=== PATIENT | female | born 1965 | race African-American/Black ===

== ENCOUNTER 2017-06-22 19:00 | Inpatient (IN) | payer MEDICAID, OTHER ==
[~2017-06-22] VITALS: Ht 177.8 cm; Wt 120.2 kg
[2017-06-22] MEDS ORDERED: KETOROLAC 60MG/2ML VIAL IM ONE (20:45)
[2017-06-22] MEDS ORDERED: MORPHINE SULFATE 4 MG/ML CPJ (NOT FOR IM USE) IV ONE (21:00)
[2017-06-22 21:10] LABS: BASOPHILS % 0.6 % (0.0-2.0); EOSINOPHILS % 2.6 % (0.0-5.0); HEMATOCRIT. 30.7 % (36.0-48.0); HEMOGLOBIN. 9.8 g/dL (12.0-16.0); LYMPHOCYTES % 17.4 % (20.0-50.0); MEAN CORPUSCULAR HEMOGLOBIN 25.4 pg (28.0-32.0); MEAN CORPUSCULAR VOLUME 79.5 fL (81.0-99.0); MEAN PLATELET VOLUME 7.9 fl (7.4-10.4); MONOCYTES % 10.5 % (2.0-8.0); NEUTROPHILS % 68.9 % (40.0-76.0); PLATELET 306 x1000/uL (130-400); RED BLOOD CELL COUNT 3.87 mill/uL (4.2-5.4); RED CELL DISTRIBUTION WIDTH 14.5 % (11.6-14.6)
[2017-06-22] MEDS ORDERED: SODIUM CHLORIDE 0.9% 500 ML IV ONE (22:00)
[2017-06-23] MEDS ORDERED: MORPHINE SULFATE 4 MG/ML CPJ (NOT FOR IM USE) IV ONE (01:00)
[2017-06-23] MEDS ORDERED: MORPHINE SULFATE 4 MG/ML CPJ (NOT FOR IM USE) IV PRN (05:45)
[2017-06-23 08:30] VITALS: BP 138/80
[2017-06-23] MEDS ORDERED: TRAMADOL 50MG TABLET PO PRN (10:00)
[2017-06-23] MEDS: SODIUM CHLORIDE 0.9% 1,000 ML IV SCH ×2 (10:47→22:57)
[2017-06-23 12:00] VITALS: BP 129/75
[2017-06-23] MEDS ORDERED: VANCOMYCIN 2,000 MG in DEXT 5% WATER 500 ML IV NR (12:00)
[2017-06-23 16:00] VITALS: BP 120/61
[2017-06-23] MEDS: TRAMADOL 50MG TABLET PO PRN (18:47)
[2017-06-23 20:00] VITALS: BP 126/72
[2017-06-24] VITALS: BP 126/69
[2017-06-24] MEDS: TRAMADOL 50MG TABLET PO PRN ×2 (02:57→12:02)
[2017-06-24 04:00] VITALS: BP 122/75
[2017-06-24] MEDS: SODIUM CHLORIDE 0.9% 1,000 ML IV SCH (06:12)
[2017-06-24 08:00] VITALS: BP 124/77
[2017-06-24] MEDS: VANCOMYCIN 1,750 MG in DEXT 5% WATER 250 ML IV SCH (11:59)
[2017-06-24 12:00] VITALS: BP 124/85
[2017-06-24 16:00] VITALS: BP 125/80
[2017-06-24 20:00] VITALS: BP 114/77
[2017-06-25] VITALS: BP 110/71
[2017-06-25] MEDS: TRAMADOL 50MG TABLET PO PRN ×3 (00:01→18:40)
[2017-06-25 04:00] VITALS: BP 108/58
[2017-06-25 06:13] LABS: HEMATOCRIT. 27.9 % (36.0-48.0); HEMOGLOBIN. 9.2 g/dL (12.0-16.0); MEAN CORPUSCULAR HEMOGLOBIN 25.3 pg (28.0-32.0); MEAN CORPUSCULAR VOLUME 76.8 fL (81.0-99.0); MEAN PLATELET VOLUME 7.6 fl (7.4-10.4); PLATELET 278 x1000/uL (130-400); RED BLOOD CELL COUNT 3.63 mill/uL (4.2-5.4); RED CELL DISTRIBUTION WIDTH 14.2 % (11.6-14.6)
[2017-06-25 06:58] LABS: CARBON DIOXIDE 28 mEq/L (21-32); CHLORIDE 101 mEq/L (98-107)
[2017-06-25 08:00] VITALS: BP 128/76
[2017-06-25] MEDS: ENOXAPARIN 30MG/0.3ML SYR SUBCUT SCH ×2 (11:10→22:42)
[2017-06-25] MEDS: MAGNESIUM/ALUMINUM HYDROXIDE/SIMETHICONE 30ML UDC PO PRN (11:10)
[2017-06-25 12:00] VITALS: BP 125/72
[2017-06-25] MEDS: SODIUM CHLORIDE 0.9% 1,000 ML IV SCH (13:04)
[2017-06-25] MEDS: VANCOMYCIN 1,750 MG in DEXT 5% WATER 250 ML IV SCH (13:04)
[2017-06-25 13:23] LABS: PLATELET ESTIMATE NORMAL
[2017-06-25 16:00] VITALS: BP 134/76
[2017-06-25 20:00] VITALS: BP 103/61
[2017-06-25] MEDS: ONDANSETRON HCL 4MG/2ML VIAL IV PRN (20:21)
[2017-06-26] VITALS: BP 139/86
[2017-06-26 04:00] VITALS: BP 145/74
[2017-06-26] MEDS: TRAMADOL 50MG TABLET PO PRN ×3 (05:57→22:31)
[2017-06-26] MEDS: SODIUM CHLORIDE 0.9% 1,000 ML IV SCH ×3 (05:59→22:32)
[2017-06-26 06:48] LABS: BASOPHILS % 0.8 % (0.0-2.0); EOSINOPHILS % 3.4 % (0.0-5.0); HEMOGLOBIN. 9.3 g/dL (12.0-16.0); LYMPHOCYTES % 27.7 % (20.0-50.0); MEAN CORPUSCULAR HEMOGLOBIN 25.4 pg (28.0-32.0); MEAN CORPUSCULAR VOLUME 76.4 fL (81.0-99.0); MEAN PLATELET VOLUME 7.3 fl (7.4-10.4); MONOCYTES % 14.9 % (2.0-8.0); NEUTROPHILS % 53.2 % (40.0-76.0); PLATELET 285 x1000/uL (130-400); RED BLOOD CELL COUNT 3.66 mill/uL (4.2-5.4); RED CELL DISTRIBUTION WIDTH 14.1 % (11.6-14.6)
[2017-06-26 07:10] LABS: CARBON DIOXIDE 25 mEq/L (21-32); CHLORIDE 100 mEq/L (98-107)
[2017-06-26 08:00] VITALS: BP 127/71
[2017-06-26] MEDS: MULTIVITAMINS,THER W-MINERALS TABLET PO SCH (09:09)
[2017-06-26] MEDS: ENOXAPARIN 30MG/0.3ML SYR SUBCUT SCH ×2 (09:10→21:01)
[2017-06-26] MEDS: ZINC SULFATE 220 MG ( 50 ) CAPSULE PO SCH (09:10)
[2017-06-26] MEDS: ASCORBIC ACID 250 MG TABLET PO SCH ×2 (09:10→21:01)
[2017-06-26 12:00] VITALS: BP 125/71
[2017-06-26] MEDS: VANCOMYCIN 1,750 MG in DEXT 5% WATER 250 ML IV SCH (12:41)
[2017-06-26 16:00] VITALS: BP 120/74
[2017-06-26 20:00] VITALS: BP 129/73
[2017-06-26] MEDS: MAGNESIUM/ALUMINUM HYDROXIDE/SIMETHICONE 30ML UDC PO PRN (21:19)
[2017-06-27] VITALS: BP 128/71
[2017-06-27 04:00] VITALS: BP 129/73
[2017-06-27] MEDS: SODIUM CHLORIDE 0.9% 1,000 ML IV SCH ×2 (06:54→22:23)
[2017-06-27] MEDS: TRAMADOL 50MG TABLET PO PRN ×2 (06:54→14:56)
[2017-06-27 08:00] VITALS: BP 117/79
[2017-06-27] MEDS: MULTIVITAMINS,THER W-MINERALS TABLET PO SCH (08:46)
[2017-06-27] MEDS: ZINC SULFATE 220 MG ( 50 ) CAPSULE PO SCH (08:46)
[2017-06-27] MEDS: ASCORBIC ACID 250 MG TABLET PO SCH ×2 (08:46→22:22)
[2017-06-27] MEDS: ENOXAPARIN 30MG/0.3ML SYR SUBCUT SCH ×2 (08:47→22:22)
[2017-06-27 12:00] VITALS: BP 130/60
[2017-06-27] MEDS: VANCOMYCIN 1,750 MG in DEXT 5% WATER 250 ML IV SCH (12:41)
[2017-06-27 16:00] VITALS: BP 123/73
[2017-06-27 20:00] VITALS: BP 126/69
[2017-06-28] VITALS: BP_SYST 113; BP_SYST 139; BP_DIAS 58; BP_DIAS 76
[2017-06-28] MEDS: TRAMADOL 50MG TABLET PO PRN ×2 (03:03→12:10)
[2017-06-28 04:00] VITALS: BP 111/58
[2017-06-28 08:00] VITALS: BP 109/71
[2017-06-28] MEDS: MULTIVITAMINS,THER W-MINERALS TABLET PO SCH (09:16)
[2017-06-28] MEDS: ZINC SULFATE 220 MG ( 50 ) CAPSULE PO SCH (09:16)
[2017-06-28] MEDS: ASCORBIC ACID 250 MG TABLET PO SCH (09:16)
[2017-06-28] MEDS: SODIUM CHLORIDE 0.9% 1,000 ML IV SCH (09:16)
[2017-06-28] MEDS: ENOXAPARIN 30MG/0.3ML SYR SUBCUT SCH (09:17)
[2017-06-28 12:00] VITALS: BP 113/67
[2017-06-28] MEDS: VANCOMYCIN 1,750 MG in DEXT 5% WATER 250 ML IV SCH (12:11)
[2017-06-28 16:00] VITALS: BP 114/67
[2017-06-28 20:00] VITALS: BP 122/68
[2017-06-29] VITALS: BP 114/76
[2017-06-29] MEDS: ASCORBIC ACID 250 MG TABLET PO SCH ×3 (00:03→20:50)
[2017-06-29] MEDS: ENOXAPARIN 30MG/0.3ML SYR SUBCUT SCH ×3 (00:04→20:50)
[2017-06-29] MEDS: TRAMADOL 50MG TABLET PO PRN ×3 (00:04→20:51)
[2017-06-29] MEDS: SODIUM CHLORIDE 0.9% 1,000 ML IV SCH ×2 (03:58→16:36)
[2017-06-29 04:00] VITALS: BP 111/56
[2017-06-29 08:00] VITALS: BP 112/67
[2017-06-29] MEDS: MULTIVITAMINS,THER W-MINERALS TABLET PO SCH (09:05)
[2017-06-29] MEDS: ZINC SULFATE 220 MG ( 50 ) CAPSULE PO SCH (09:05)
[2017-06-29 12:00] VITALS: BP 112/62
[2017-06-29] MEDS: VANCOMYCIN 1,750 MG in DEXT 5% WATER 250 ML IV SCH (13:38)
[2017-06-29 16:00] VITALS: BP 107/69
[2017-06-29] MEDS ORDERED: METHYL SALICYLATE/MENTHOL CREAM 85GM TOP PRN (16:00)
[2017-06-29 20:00] VITALS: BP 127/64
[2017-06-29] MEDS: ACETAMINOPHEN 325MG TABLET PO PRN (22:23)
[2017-06-30] VITALS: BP 104/53
[2017-06-30] MEDS: SODIUM CHLORIDE 0.9% 1,000 ML IV SCH ×2 (00:56→10:46)
[2017-06-30 04:00] VITALS: BP 109/59
[2017-06-30] MEDS: OMEPRAZOLE 20MG CAPSULE EXTENDED RELEASE PO SCH (06:50)
[2017-06-30] MEDS: TRAMADOL 50MG TABLET PO PRN ×2 (06:51→16:47)
[2017-06-30 07:15] LABS: BASOPHILS % 0.6 % (0.0-2.0); EOSINOPHILS % 6.4 % (0.0-5.0); HEMATOCRIT. 29.2 % (36.0-48.0); HEMOGLOBIN. 9.5 g/dL (12.0-16.0); MEAN CORPUSCULAR HEMOGLOBIN 24.8 pg (28.0-32.0); MEAN CORPUSCULAR VOLUME 76.3 fL (81.0-99.0); MEAN PLATELET VOLUME 7.5 fl (7.4-10.4); MONOCYTES % 14.5 % (2.0-8.0); NEUTROPHILS % 41.5 % (40.0-76.0); PLATELET 197 x1000/uL (130-400); RED BLOOD CELL COUNT 3.83 mill/uL (4.2-5.4); RED CELL DISTRIBUTION WIDTH 14.3 % (11.6-14.6)
[2017-06-30 08:00] VITALS: BP 100/63
[2017-06-30 08:02] LABS: CARBON DIOXIDE 30 mEq/L (21-32); CHLORIDE 101 mEq/L (98-107)
[2017-06-30] MEDS: ASCORBIC ACID 250 MG TABLET PO SCH ×2 (08:22→21:18)
[2017-06-30] MEDS: ZINC SULFATE 220 MG ( 50 ) CAPSULE PO SCH (08:22)
[2017-06-30] MEDS: MULTIVITAMINS,THER W-MINERALS TABLET PO SCH (08:22)
[2017-06-30] MEDS: ENOXAPARIN 30MG/0.3ML SYR SUBCUT SCH ×2 (08:22→21:20)
[2017-06-30 12:00] VITALS: BP 111/60
[2017-06-30] MEDS: VANCOMYCIN 1,750 MG in DEXT 5% WATER 250 ML IV SCH (12:24)
[2017-06-30] MEDS ORDERED: DAPTOMYCIN XX SCH (15:15)
[2017-06-30 16:00] VITALS: BP 105/64
[2017-06-30] MEDS: ACETAMINOPHEN 325MG TABLET PO PRN (16:48)
[2017-06-30] MEDS: CEFTRIAXONE 1 G PREMIX 50 ML IV SCH (18:09)
[2017-06-30 19:53] LABS: CLARITY URINE CLEAR (CLEAR); COLOR URINE YELLOW (YELLOW); GLUCOSE URINE NEGATIVE (NEGATIVE); KETONES URINE NEGATIVE (NEGATIVE); LEUKOCYTE ESTERASE URINE NEGATIVE (NEGATIVE); NITRITE URINE NEGATIVE (NEGATIVE); OCCULT BLOOD URINE 1+ (NEGATIVE); PH URINE 6.5 (4.5-8.0); PROTEIN URINE NEGATIVE (NEGATIVE); UROBILINOGEN URINE 0.2 E.U./dL (0.2-1.0)
[2017-06-30 20:00] VITALS: BP 105/60
[2017-06-30] MEDS: DAPTOMYCIN 700 MG in SODIUM CHLORIDE 0.9% 50 ML IV SCH (21:18)
[2017-06-30] MEDS: LIDOCAINE 5% PATCH TOP SCH (23:53)
[2017-06-30] MEDS: MAGNESIUM/ALUMINUM HYDROXIDE/SIMETHICONE 30ML UDC PO PRN (23:53)
[2017-07-01 00:23] VITALS: BP 127/64
[2017-07-01 01:13] LABS: INR 1.2; PROTHROMBIN TIME 12.8 sec (9.4-11.6)
[2017-07-01 04:00] VITALS: BP 109/61
[2017-07-01] MEDS: TRAMADOL 50MG TABLET PO PRN ×2 (04:51→15:27)
[2017-07-01] MEDS: OMEPRAZOLE 20MG CAPSULE EXTENDED RELEASE PO SCH (06:43)
[2017-07-01 08:00] VITALS: BP 130/66
[2017-07-01 08:09] LABS: BASOPHILS % 0.7 % (0.0-2.0); EOSINOPHILS % 6.9 % (0.0-5.0); HEMATOCRIT. 29.8 % (36.0-48.0); HEMOGLOBIN. 9.7 g/dL (12.0-16.0); LYMPHOCYTES % 31.4 % (20.0-50.0); MEAN CORPUSCULAR HEMOGLOBIN 24.8 pg (28.0-32.0); MEAN CORPUSCULAR VOLUME 76.1 fL (81.0-99.0); MEAN PLATELET VOLUME 7.9 fl (7.4-10.4); MONOCYTES % 10.6 % (2.0-8.0); NEUTROPHILS % 50.4 % (40.0-76.0); PLATELET 200 x1000/uL (130-400); RED BLOOD CELL COUNT 3.91 mill/uL (4.2-5.4); RED CELL DISTRIBUTION WIDTH 14.8 % (11.6-14.6)
[2017-07-01] MEDS: ENOXAPARIN 30MG/0.3ML SYR SUBCUT SCH ×2 (09:00→20:54)
[2017-07-01 09:18] LABS: CARBON DIOXIDE 28 mEq/L (21-32); CHLORIDE 101 mEq/L (98-107); CREATINE KINASE 27 IU/L (26-192)
[2017-07-01] MEDS: ASCORBIC ACID 250 MG TABLET PO SCH ×2 (10:11→20:53)
[2017-07-01] MEDS: MULTIVITAMINS,THER W-MINERALS TABLET PO SCH (10:11)
[2017-07-01] MEDS: ZINC SULFATE 220 MG ( 50 ) CAPSULE PO SCH (10:11)
[2017-07-01] MEDS: SODIUM CHLORIDE 0.9% 1,000 ML IV SCH (10:19)
[2017-07-01] MEDS: ONDANSETRON HCL 4MG/2ML VIAL IV PRN (10:27)
[2017-07-01 12:00] VITALS: BP 124/64
[2017-07-01 16:00] VITALS: BP 141/70
[2017-07-01] MEDS: CEFTRIAXONE 1 G PREMIX 50 ML IV SCH (18:31)
[2017-07-01 20:00] VITALS: BP 101/64
[2017-07-01] MEDS: DAPTOMYCIN 700 MG in SODIUM CHLORIDE 0.9% 50 ML IV SCH (20:53)
[2017-07-02] VITALS: BP 93/55
[2017-07-02] MEDS: TRAMADOL 50MG TABLET PO PRN ×2 (02:42→13:43)
[2017-07-02] MEDS: SODIUM CHLORIDE 0.9% 1,000 ML IV SCH ×2 (02:45→13:39)
[2017-07-02 04:00] VITALS: BP 98/60
[2017-07-02 06:22] LABS: BASOPHILS % 0.6 % (0.0-2.0); EOSINOPHILS % 8.2 % (0.0-5.0); HEMOGLOBIN. 9.5 g/dL (12.0-16.0); LYMPHOCYTES % 42.6 % (20.0-50.0); MEAN CORPUSCULAR HEMOGLOBIN 25.1 pg (28.0-32.0); MEAN CORPUSCULAR VOLUME 76.6 fL (81.0-99.0); MONOCYTES % 10.2 % (2.0-8.0); NEUTROPHILS % 38.4 % (40.0-76.0); PLATELET 226 x1000/uL (130-400); RED BLOOD CELL COUNT 3.78 mill/uL (4.2-5.4); RED CELL DISTRIBUTION WIDTH 14.5 % (11.6-14.6)
[2017-07-02 06:35] LABS: CARBON DIOXIDE 29 mEq/L (21-32); CHLORIDE 106 mEq/L (98-107)
[2017-07-02 08:00] VITALS: BP 106/64
[2017-07-02] MEDS: ENOXAPARIN 30MG/0.3ML SYR SUBCUT SCH ×2 (08:28→21:16)
[2017-07-02] MEDS: MULTIVITAMINS,THER W-MINERALS TABLET PO SCH (08:31)
[2017-07-02] MEDS: ASCORBIC ACID 250 MG TABLET PO SCH ×2 (08:31→21:15)
[2017-07-02] MEDS: ZINC SULFATE 220 MG ( 50 ) CAPSULE PO SCH (08:31)
[2017-07-02] MEDS: LIDOCAINE 5% PATCH TOP SCH (08:31)
[2017-07-02] MEDS: FAMOTIDINE 20MG TABLET PO SCH ×2 (08:31→21:15)
[2017-07-02 12:00] VITALS: BP 108/64
[2017-07-02] MEDS: DIPHENHYDRAMINE 25MG CAPSULE PO PRN ×2 (13:38→22:36)
[2017-07-02 16:00] VITALS: BP 110/64
[2017-07-02] MEDS: ACETAMINOPHEN 325MG TABLET PO PRN (17:00)
[2017-07-02] MEDS: CEFTRIAXONE 1 G PREMIX 50 ML IV SCH (19:06)
[2017-07-02 20:00] VITALS: BP 118/66
[2017-07-02] MEDS: DAPTOMYCIN 700 MG in SODIUM CHLORIDE 0.9% 50 ML IV SCH (21:15)
[2017-07-03] VITALS: BP 103/59
[2017-07-03] MEDS: SODIUM CHLORIDE 0.9% 1,000 ML IV SCH ×2 (02:48→17:09)
[2017-07-03 04:00] VITALS: BP 104/59
[2017-07-03] MEDS: DIPHENHYDRAMINE 25MG CAPSULE PO PRN ×2 (06:35→17:01)
[2017-07-03] MEDS: TRAMADOL 50MG TABLET PO PRN ×2 (06:37→17:01)
[2017-07-03 08:00] VITALS: BP 112/59
[2017-07-03 08:03] LABS: BASOPHILS % 0.6 % (0.0-2.0); EOSINOPHILS % 7.7 % (0.0-5.0); HEMATOCRIT. 28.1 % (36.0-48.0); HEMOGLOBIN. 9.2 g/dL (12.0-16.0); LYMPHOCYTES % 35.7 % (20.0-50.0); MEAN CORPUSCULAR HEMOGLOBIN 24.9 pg (28.0-32.0); MEAN CORPUSCULAR VOLUME 76.4 fL (81.0-99.0); MEAN PLATELET VOLUME 7.7 fl (7.4-10.4); MONOCYTES % 7.9 % (2.0-8.0); NEUTROPHILS % 48.1 % (40.0-76.0); PLATELET 238 x1000/uL (130-400); RED BLOOD CELL COUNT 3.68 mill/uL (4.2-5.4); RED CELL DISTRIBUTION WIDTH 14.8 % (11.6-14.6)
[2017-07-03 08:22] LABS: CARBON DIOXIDE 28 mEq/L (21-32); CHLORIDE 103 mEq/L (98-107)
[2017-07-03] MEDS: MULTIVITAMINS,THER W-MINERALS TABLET PO SCH (08:43)
[2017-07-03] MEDS: ZINC SULFATE 220 MG ( 50 ) CAPSULE PO SCH (08:43)
[2017-07-03] MEDS: ASCORBIC ACID 250 MG TABLET PO SCH ×2 (08:43→20:13)
[2017-07-03] MEDS: FAMOTIDINE 20MG TABLET PO SCH ×2 (08:43→20:13)
[2017-07-03] MEDS: ENOXAPARIN 30MG/0.3ML SYR SUBCUT SCH ×2 (08:46→20:14)
[2017-07-03] MEDS: LIDOCAINE 5% PATCH TOP SCH (08:49)
[2017-07-03 12:00] VITALS: BP 143/68
[2017-07-03 14:25] LABS: CLARITY URINE CLEAR (CLEAR); COLOR URINE YELLOW (YELLOW); GLUCOSE URINE NEGATIVE (NEGATIVE); KETONES URINE NEGATIVE (NEGATIVE); LEUKOCYTE ESTERASE URINE NEGATIVE (NEGATIVE); NITRITE URINE NEGATIVE (NEGATIVE); OCCULT BLOOD URINE NEGATIVE (NEGATIVE); PH URINE 6.5 (4.5-8.0); PROTEIN URINE NEGATIVE (NEGATIVE); SPECIFIC GRAVITY URINE 1.014 (1.005-1.030); UROBILINOGEN URINE 0.2 E.U./dL (0.2-1.0)
[2017-07-03 16:00] VITALS: BP 117/69
[2017-07-03] MEDS: CEFTRIAXONE 1 G PREMIX 50 ML IV SCH (18:51)
[2017-07-03 20:00] VITALS: BP 108/65
[2017-07-03] MEDS: DAPTOMYCIN 700 MG in SODIUM CHLORIDE 0.9% 50 ML IV SCH (22:09)
[2017-07-04] VITALS: BP 112/59
[2017-07-04] MEDS: DIPHENHYDRAMINE 25MG CAPSULE PO PRN ×2 (03:00→22:45)
[2017-07-04] MEDS ORDERED: TRAMADOL 50MG TABLET PO PRN (03:00)
[2017-07-04 04:00] VITALS: BP 108/62
[2017-07-04] MEDS: SODIUM CHLORIDE 0.9% 1,000 ML IV SCH ×2 (05:31→22:51)
[2017-07-04 08:00] VITALS: BP 111/51
[2017-07-04] MEDS: ENOXAPARIN 30MG/0.3ML SYR SUBCUT SCH ×2 (08:38→22:49)
[2017-07-04] MEDS: FAMOTIDINE 20MG TABLET PO SCH ×2 (08:38→22:44)
[2017-07-04] MEDS: ZINC SULFATE 220 MG ( 50 ) CAPSULE PO SCH (08:38)
[2017-07-04] MEDS: MULTIVITAMINS,THER W-MINERALS TABLET PO SCH (08:39)
[2017-07-04] MEDS: ASCORBIC ACID 250 MG TABLET PO SCH ×2 (08:39→22:45)
[2017-07-04] MEDS: LIDOCAINE 5% PATCH TOP SCH (08:40)
[2017-07-04 12:00] VITALS: BP 108/63
[2017-07-04 16:00] VITALS: BP 124/73
[2017-07-04 20:00] VITALS: BP 122/82
[2017-07-04] MEDS: DAPTOMYCIN 700 MG in SODIUM CHLORIDE 0.9% 50 ML IV SCH (22:43)
[2017-07-05] VITALS: BP 110/60
[2017-07-05 04:00] VITALS: BP 102/54
[2017-07-05] MEDS: ACETAMINOPHEN 325MG TABLET PO PRN (04:07)
[2017-07-05] MEDS: SODIUM CHLORIDE 0.9% 1,000 ML IV SCH ×2 (04:09→16:37)
[2017-07-05 08:00] VITALS: BP 103/55
[2017-07-05] MEDS: ENOXAPARIN 30MG/0.3ML SYR SUBCUT SCH ×2 (08:51→20:45)
[2017-07-05] MEDS: FAMOTIDINE 20MG TABLET PO SCH ×2 (08:51→20:44)
[2017-07-05] MEDS: ZINC SULFATE 220 MG ( 50 ) CAPSULE PO SCH (08:51)
[2017-07-05] MEDS: ASCORBIC ACID 250 MG TABLET PO SCH ×2 (08:51→20:44)
[2017-07-05] MEDS: MULTIVITAMINS,THER W-MINERALS TABLET PO SCH (08:51)
[2017-07-05] MEDS: LIDOCAINE 5% PATCH TOP SCH (09:03)
[2017-07-05 12:00] VITALS: BP 111/60
[2017-07-05] MEDS: DIPHENHYDRAMINE 25MG CAPSULE PO PRN (14:03)
[2017-07-05] MEDS: TRAMADOL 50MG TABLET PO PRN (14:03)
[2017-07-05 16:00] VITALS: BP 112/57
[2017-07-05 20:00] VITALS: BP 104/58
[2017-07-05] MEDS: DAPTOMYCIN 700 MG in SODIUM CHLORIDE 0.9% 50 ML IV SCH (21:59)
[2017-07-06] VITALS: BP 120/64
[2017-07-06] MEDS: TRAMADOL 50MG TABLET PO PRN ×2 (02:22→14:26)
[2017-07-06 04:00] VITALS: BP 123/68
[2017-07-06] MEDS: SODIUM CHLORIDE 0.9% 1,000 ML IV SCH ×2 (06:14→16:15)
[2017-07-06 08:00] VITALS: BP_SYST 114; BP_SYST 120; BP_DIAS 54; BP_DIAS 68
[2017-07-06] MEDS: FAMOTIDINE 20MG TABLET PO SCH ×2 (09:16→20:38)
[2017-07-06] MEDS: ASCORBIC ACID 250 MG TABLET PO SCH ×2 (09:16→20:38)
[2017-07-06] MEDS: ENOXAPARIN 30MG/0.3ML SYR SUBCUT SCH ×2 (09:16→20:38)
[2017-07-06] MEDS: MULTIVITAMINS,THER W-MINERALS TABLET PO SCH (09:16)
[2017-07-06] MEDS: ZINC SULFATE 220 MG ( 50 ) CAPSULE PO SCH (09:16)
[2017-07-06] MEDS: LIDOCAINE 5% PATCH TOP SCH (09:21)
[2017-07-06 12:00] VITALS: BP 106/66
[2017-07-06] MEDS: DIPHENHYDRAMINE 25MG CAPSULE PO PRN (14:22)
[2017-07-06 16:00] VITALS: BP 130/70
[2017-07-06 20:00] VITALS: BP 113/64
[2017-07-06] MEDS: DAPTOMYCIN 700 MG in SODIUM CHLORIDE 0.9% 50 ML IV SCH (20:37)
[2017-07-07] VITALS: BP 135/88
[2017-07-07] MEDS: DIPHENHYDRAMINE 25MG CAPSULE PO PRN ×2 (01:21→18:14)
[2017-07-07] MEDS: TRAMADOL 50MG TABLET PO PRN ×2 (01:21→17:36)
[2017-07-07 04:00] VITALS: BP 111/85
[2017-07-07 08:00] VITALS: BP 128/67
[2017-07-07] MEDS: MULTIVITAMINS,THER W-MINERALS TABLET PO SCH (10:00)
[2017-07-07] MEDS: FAMOTIDINE 20MG TABLET PO SCH ×2 (10:00→20:15)
[2017-07-07] MEDS: ENOXAPARIN 30MG/0.3ML SYR SUBCUT SCH ×2 (10:01→20:15)
[2017-07-07] MEDS: ASCORBIC ACID 250 MG TABLET PO SCH ×2 (10:19→20:15)
[2017-07-07] MEDS: ZINC SULFATE 220 MG ( 50 ) CAPSULE PO SCH (10:53)
[2017-07-07] MEDS: LIDOCAINE 5% PATCH TOP SCH (10:54)
[2017-07-07 12:00] VITALS: BP 126/69
[2017-07-07 16:00] VITALS: BP 107/65
[2017-07-07 20:00] VITALS: BP 132/78
[2017-07-07] MEDS: DAPTOMYCIN 700 MG in SODIUM CHLORIDE 0.9% 50 ML IV SCH (20:14)
[2017-07-08] VITALS: BP 131/68
[2017-07-08] MEDS: DIPHENHYDRAMINE 25MG CAPSULE PO PRN ×2 (01:44→16:02)
[2017-07-08] MEDS: TRAMADOL 50MG TABLET PO PRN ×2 (01:44→16:03)
[2017-07-08 04:00] VITALS: BP 132/89
[2017-07-08] MEDS: SODIUM CHLORIDE 0.9% 1,000 ML IV SCH ×2 (05:29→18:15)
[2017-07-08 06:12] LABS: CARBON DIOXIDE 34 mEq/L (21-32); CHLORIDE 100 mEq/L (98-107)
[2017-07-08 06:21] LABS: EOSINOPHILS % 4.8 % (0.0-5.0); HEMATOCRIT. 31.8 % (36.0-48.0); HEMOGLOBIN. 10.2 g/dL (12.0-16.0); LYMPHOCYTES % 34.5 % (20.0-50.0); MEAN CORPUSCULAR HEMOGLOBIN 24.9 pg (28.0-32.0); MEAN CORPUSCULAR VOLUME 77.4 fL (81.0-99.0); MEAN PLATELET VOLUME 7.6 fl (7.4-10.4); MONOCYTES % 8.5 % (2.0-8.0); NEUTROPHILS % 51.2 % (40.0-76.0); PLATELET 324 x1000/uL (130-400); RED CELL DISTRIBUTION WIDTH 15.1 % (11.6-14.6)
[2017-07-08 08:00] VITALS: BP 118/59
[2017-07-08] MEDS: FAMOTIDINE 20MG TABLET PO SCH ×2 (09:24→20:53)
[2017-07-08] MEDS: MULTIVITAMINS,THER W-MINERALS TABLET PO SCH (09:24)
[2017-07-08] MEDS: ASCORBIC ACID 250 MG TABLET PO SCH ×2 (09:24→21:35)
[2017-07-08] MEDS: ZINC SULFATE 220 MG ( 50 ) CAPSULE PO SCH (09:24)
[2017-07-08] MEDS: ENOXAPARIN 30MG/0.3ML SYR SUBCUT SCH ×2 (09:25→20:52)
[2017-07-08] MEDS: LIDOCAINE 5% PATCH TOP SCH (09:25)
[2017-07-08 12:00] VITALS: BP 115/57
[2017-07-08 16:00] VITALS: BP 121/69
[2017-07-08 20:00] VITALS: BP 105/64
[2017-07-08] MEDS: DAPTOMYCIN 700 MG in SODIUM CHLORIDE 0.9% 50 ML IV SCH (20:51)
[2017-07-09] VITALS: BP 110/66
[2017-07-09] MEDS: TRAMADOL 50MG TABLET PO PRN ×2 (02:12→14:47)
[2017-07-09] MEDS: SODIUM CHLORIDE 0.9% 1,000 ML IV SCH (02:13)
[2017-07-09 04:00] VITALS: BP 103/55
[2017-07-09 08:00] VITALS: BP 104/43
[2017-07-09] MEDS: ZINC SULFATE 220 MG ( 50 ) CAPSULE PO SCH (09:01)
[2017-07-09] MEDS: FAMOTIDINE 20MG TABLET PO SCH (09:01)
[2017-07-09] MEDS: MULTIVITAMINS,THER W-MINERALS TABLET PO SCH (09:01)
[2017-07-09] MEDS: LIDOCAINE 5% PATCH TOP SCH (09:01)
[2017-07-09] MEDS: ASCORBIC ACID 250 MG TABLET PO SCH (09:01)
[2017-07-09] MEDS: ENOXAPARIN 30MG/0.3ML SYR SUBCUT SCH (09:02)
[2017-07-09 12:00] VITALS: BP 119/56
[2017-07-09 16:00] VITALS: BP 111/66
[2017-07-09 17:22] VITALS: BP 111/66
== END 2017-07-09 19:39 | disposition home health service (06) | DRG 383 ==
LOC: ER 19:31 → 6EST 06-23 02:08 → EDBEDREQ 06-23 02:10 → ENRESERV 06-23 07:06 → 6EST 06-25 17:05
PROVIDERS: ADMIT Family Medicine Adult Medicine; ATTEND Family Medicine Adult Medicine
PROC: 0S9C3ZX Drainage of Right Knee Joint, Percutaneous Approach, Diagnostic (ICD-10-PCS; principal; 2017-07-01)
DX: L03.115 Cellulitis of right lower limb (principal); E43 Unspecified severe protein-calorie malnutrition; E87.1 Hypo-osmolality and hyponatremia; E66.01 Morbid (severe) obesity due to excess calories; D64.9 Anemia, unspecified; F14.10 Cocaine abuse, uncomplicated; D72.819 Decreased white blood cell count, unspecified; L30.9 Dermatitis, unspecified; H11.30 Conjunctival hemorrhage, unspecified eye; L98.419 Non-pressure chronic ulcer of buttock with unspecified severity; R31.29 Other microscopic hematuria; Z86.14 Personal history of Methicillin resistant Staphylococcus aureus infection; Z87.891 Personal history of nicotine dependence; Z98.51 Tubal ligation status; Z68.38 Body mass index [BMI] 38.0-38.9, adult; M17.11 Unilateral primary osteoarthritis, right knee
CPT/HCPCS: 36415; 73562; 73590; 76942; 80048; 80076; 80202; 81001; 81003; 82550; 83605; 83690; 84550; 85025; 85610; 87040; 87070; 87086; 87205; 89060; 93971; 96374; 96376; 97110; 97162; 97166; 97530; 97535; 99285; A6261; J0696; J0878; J1650; J2270; J2405; J3370; J7030; J7040; J7050; J7060; Q0163